=== PATIENT | male | born 2000 | race Two or more races ===

== ENCOUNTER 2020-01-10 21:50 | Emergency (ER) | payer OTHER ==
[~2020-01-10] VITALS: Ht 175.3 cm; Wt 147.4 kg
[2020-01-10 22:17] VITALS: BP 155/112
== END 2020-01-11 03:37 | disposition left against medical advice (07) ==
LOC: ER 21:50
DX: J02.9 Acute pharyngitis, unspecified (principal); Z53.21 Procedure and treatment not carried out due to patient leaving prior to being seen by health care provider
CPT/HCPCS: 70490